=== PATIENT | male | born 1970 ===

== ENCOUNTER 2017-04-16 00:12 | Emergency (ER) | payer SELFPAY ==
[2017-04-16 01:10] VITALS: BMI 33.0
--- NOTE | 2017-04-16 02:23 | ED PDOC ---
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 states this afternoon he developed a gradual onset frontal and occipital headache. Pt. states he's had similar headaches in the past which occurs when he does not take his Enalapril 20mg. States he last took this dose on morning. Of note, pt. was brought initially by PD as he is currently arrested and informed that he felt suicidal. Pt. still feels suicidal and reports that he is scared about going to assisted. Denies plan, HI, hallucinations, N/V, fever, chest pain, palpitations, trauma, visual changes, SOB. Past Medical History Reviewed: Historical Data, Nursing Documentation, Vital Signs Vital Signs: Last Vital Signs Temp 98.3 F 04/16/17 00:30 Pulse 94 H 04/16/17 04:17 Resp 16 04/16/17 00:30 BP 206/135 H 04/16/17 00:30 Pulse Ox 98 04/16/17 04:17 - Medical History PMH: HTN - Family History Family History: States: No Known Family Hx - Social History Drugs: Denies - Home Medications Home Medications: Ambulatory Orders Medication Instructions Recorded Metoprolol Succinate [Toprol XL] 50 mg PO DAILY #14 tab 04/16/17 - Allergies Allergies/Adverse Reactions: Allergies Allergy/AdvReac Type Severity Reaction Status Date / Time No Known Allergies Allergy Verified 04/16/17 01:09 - Laboratory Results Result Diagrams: 04/16/17 02:20 04/16/17 02:20 - ECG ECG: Positive for: Interpreted By Me (and Dr. Davies) ECG Rhythm: Positive for: Atrial Fibrillation Rate: 94 O2 Sat by Pulse Oximetry: 98 - Progress ED Course And Treament: Labs ordered. EKG, crisis evaluation ordered. Enalapril 20mg PO ordered. Pt. placed on 1:1. 0224 Pt. evaluated by crisis and cleared pt. for discharge as per Dr. Gilmore. 0325 EKG: afib @ 94 bpm. BP: 110/[address] head w/o contrast: negative. 0415 surveillance monitor: paroxysmal afib @ 96 bpm 0449 Case d/w Dr. Davies and states pt. can be dc'd with Rx for Metoprolol and f/u with arts manager. Pt. informed of plan and instructed to stop taking Enalapril and start Metoprolol. Disposition - Clinical Impression Clinical Impression: Hypertension, Paroxysmal atrial fibrillation, Suicidal ideation - Patient ED Disposition Is Patient to be Admitted: No - Disposition Referrals: South Mullins MD [Staff Provider] - [facility] [Outside] [facility] [Outside] Disposition: Discharged/Transfer to Law Enforcement Disposition Time: 05:08 Condition: IMPROVED Additional Instructions: Patient is medically and psychiatrically cleared for incarceration. Prescriptions: Metoprolol Succinate [Toprol XL] 50 mg PO DAILY #14 tab Instructions: Hypertension (ED), Atrial Fibrillation (ED) Forms: [facility] ([place]) Print Language: BRITISH
[2017-04-16 02:36] LABS: BASO # 0.1 K/uL (0.0-0.2); BASO % 0.5 % (0.0-2.0); EOS % 0.2 % (0.0-4.0); HEMATOCRIT 47.9 % (35.0-51.0); LYMPH # 1.2 K/uL (1.0-4.3); LYMPH % 13.3 % (20.0-40.0); MEAN CELL VOLUME 96.3 fl (80.0-94.0); MEAN CORPUSCULAR HEMOGLOBIN 32.1 pg (27.0-31.0); MEAN CORPUSCULAR HGB CONC 33.3 g/dL (33.0-37.0); MEAN PLATELET VOLUME 8.8 fl (7.2-11.7); MONO # 0.6 K/uL (0.0-0.8); MONO % 6.3 % (0.0-10.0); NEUT # 7.4 K/uL (1.8-7.0); NEUT % 79.7 % (50.0-75.0); NRBC % 0.1 % (0.0-0.0); RED CELL DISTRIBUTION WIDTH 14.2 % (11.5-14.5); WHITE BLOOD COUNT 9.3 K/uL (4.8-10.8)
[2017-04-16 02:43] LABS: ALB/GLOB RATIO 1.4 (1.0-2.1); ALCOHOL SERUM < 10 mg/dl (0-10); ALKALINE PHOSPHATASE 62 U/L (38-126); ALT/SGPT 33 U/L (21-72); AST/SGOT 36 U/L (17-59); BILIRUBIN,TOTAL 0.5 mg/dl (0.2-1.3); BLOOD UREA NITROGEN 16 mg/dl (9-20); CALCIUM 9.1 mg/dL (8.4-10.2); CARBON DIOXIDE 24 mmol/L (22-30); CHLORIDE 103 mmol/L (98-107); GFR AFRICAN-AMERICAN > 60; GLUCOSE,RANDOM 106 mg/dL (75-110); POTASSIUM 4.8 MMOL/L (3.6-5.0); SODIUM 141 mmol/l (132-148); TOTAL PROTEIN 7.8 G/DL (6.3-8.2)
[2017-04-16 04:23] LABS: RBC URINE < 1 /hpf (0-3); URINE BILIRUBIN NEGATIVE (NEGATIVE); URINE BLOOD NEGATIVE (NEGATIVE); URINE COLOR STRAW (YELLOW); URINE GLUCOSE (UA) NEG (Normal); URINE KETONE NEGATIVE (NEGATIVE); URINE LEUKOCYTE ESTERASE NEG Leu/uL (Negative); URINE PROTEIN NEGATIVE (NEGATIVE); URINE UROBILINOGEN 0.2-1.0 mg/dL (0.2-1.0); WBC URINE < 1 /hpf (0-5)
[2017-04-16 05:26] VITALS: BP 144/79; RESP 17; TEMP 97.9
[2017-04-16 05:57] VITALS: PULSE 94; O2SAT 98
--- NOTE | 2017-04-16 09:21 | CT ---
PROCEDURE: CT HEAD WITHOUT CONTRAST. HISTORY: headache COMPARISON: None available. TECHNIQUE: Axial computed tomography images were obtained through the head/brain without intravenous contrast. Radiation dose: Total exam DLP = 890.17 mGy-cm. This CT exam was performed using one or more of the following dose reduction techniques: Automated exposure control, adjustment of the mA and/or kV according to patient size, and/or use of iterative reconstruction technique. FINDINGS: HEMORRHAGE: No intracranial hemorrhage. BRAIN: No evidence of large acute infarct. There appears to be some very minor chronic periventricular white matter ischemic changes. Additionally, subtle low attenuation changes seen in the subcortical white matter anterior frontal lobes. . . Small arachnoid cyst right anterior middle cranial fossa. Mild generalized volume loss. VENTRICLES: No obstructive hydrocephalus. CALVARIUM: No acute calvarial fractures. PARANASAL SINUSES: Unremarkable as visualized. No significant inflammatory changes. MASTOID AIR CELLS: Unremarkable as visualized. No inflammatory changes. OTHER FINDINGS: None. IMPRESSION: No evidence of acute intracranial hemorrhage. Mild chronic white matter ischemic changes felt present as described. Small arachnoid cyst right middle cranial fossa. Mild generalized volume loss
--- NOTE | 2017-04-16 18:10 | CARD ---
APPROVED REPORT EKG Measurement Heart [id number] <Conclusion> Atrial fibrillation Minimal voltage criteria for LVH, may be normal variant Septal infarct, age undetermined Abnormal ECG
== END 2017-04-16 06:03 ==
LOC: H.ER 00:12
DX: I10 Essential (primary) hypertension (principal); I48.0 Paroxysmal atrial fibrillation; R45.851 Suicidal ideations
CPT/HCPCS: 70450; 80053; 81003; 85025; 93005; 99283; G0480